=== PATIENT | female | born 1950 | race Caucasian/White ===

== ENCOUNTER 2023-03-13 09:04 | Day surgery (SDC) | payer MEDICARE ==
[~2023-03-13] VITALS: Ht 162.6 cm; Wt 73.0 kg
[2023-03-13] VITALS (17 sets, daily range): BP systolic 115–136; BP diastolic 56–80; PULSE 69–81; RESP 9–17; TEMP 97.9; O2SAT 90–100
[2023-03-13] MEDS ORDERED: ringers solution, lacted 1,000 ML IV SCH ×2 (09:37→10:45)
[2023-03-13] MEDS ORDERED: famotidine 20mg tablet PO ONE (09:37)
[2023-03-13] MEDS ORDERED: cefazolin 2gm/D5W 100mL 100 ML IV ONE (09:37)
[2023-03-13] MEDS ORDERED: CITA10TA PO (09:50)
[2023-03-13] MEDS ORDERED: CALC1CAP22 PO (09:50)
[2023-03-13] MEDS ORDERED: PRAV40TA3 PO (09:50)
[2023-03-13] MEDS ORDERED: HYDR-3972 PO (09:50)
[2023-03-13] MEDS ORDERED: LISI40TA13 PO (09:50)
[2023-03-13] MEDS ORDERED: CHOL400T58 PO (09:50)
[2023-03-13] MEDS ORDERED: OMEG-5 PO (09:50)
[2023-03-13] MEDS ORDERED: HYDR25TA5 PO (09:50)
[2023-03-13] MEDS ORDERED: morphine 4 MG/ML inj SYRINge IV ONE (10:30)
[2023-03-13] MEDS ORDERED: HYDROcodone/acetaminophen 10/325mg tab PO ONE (10:30)
[2023-03-13] MEDS ORDERED: morphine 2 MG/ML inj. syringe IV PRN (10:45)
[2023-03-13] MEDS ORDERED: hydrALAZINE 20mg/ml inj. IV PRN (10:45)
[2023-03-13] MEDS ORDERED: labetalol 20mg/4ml (5mg/ml) syringe IV PRN (10:45)
[2023-03-13] MEDS ORDERED: ondansetron/PF 4mg/2ml inj IV PRN (10:45)
[2023-03-13] MEDS ORDERED: fentaNYL/PF 50MCG/1 ML 2ML syringe IV PRN ×2 (10:45)
[2023-03-13] MEDS ORDERED: morphine 4 MG/ML inj SYRINge IV PRN (10:45)
[2023-03-13 11:22] LABS: BASOPHILS % (AUTO) 0.5 % (0-1); EOSINOPHILS % (AUTO) 0.9 % (0-6); LYMPHOCYTES # (AUTO) 1.6 X10'3 (1.1-4.8); LYMPHOCYTES % (AUTO) 29.7 % (21-51); MEAN CORPUSCULAR HEMOGLOBIN 32.8 PG (27.0-31.0); MEAN CORPUSCULAR HGB CONC 34.2 g/dL (33.0-36.5); MEAN CORPUSCULAR VOLUME 95.8 FL (78-98); MEAN PLATELET VOLUME 7.4 FL (7.4-10.4); MONOCYTES # (AUTO) 0.6 X10'3 (0-0.9); MONOCYTES % (AUTO) 11.2 % (2-12); NEUTROPHILS % (AUTO) 57.7 % (42-75); PRE OP HEMATOCRIT 37.3 % (35.0-45.0); PRE OP HEMOGLOBIN 12.8 g/dL (12.0-16.0); PRE OP PLATELET COUNT 186 X10'3 (140-440); RED BLOOD COUNT 3.89 X10'6 (4.20-5.60)
[2023-03-13 11:37] LABS: ALBUMIN 3.7 G/DL (3.4-5.0); ALBUMIN/GLOBULIN RATIO 1.2 (1.1-1.5); ALKALINE PHOSPHATASE 67 IU/L (46-116); BLOOD UREA NITROGEN 21 MG/DL (7-18); BUN/CREATININE RATIO 30.4 (10.0-20.0); CALCIUM 9.1 MG/DL (8.5-10.1); CHLORIDE 99 MMOL/L (99-107); CREATININE 0.69 MG/DL (0.40-0.90); PRE OP ALT 25 U/L (30-65); PRE OP ANION GAP 7 (8-16); PRE OP AST 22 U/L (10-37); PRE OP BILIRUB, TOTAL 0.5 MG/DL (0.0-1.0); PRE OP GLUCOSE 99 MG/DL (70-104); PRE OP POTASSIUM 3.6 MMOL/L (3.4-5.1); PRE OP SODIUM 135 MMOL/L (135-145); TOTAL CARBON DIOXIDE 29.4 MMOL/L (24-32); TOTAL PROTEIN 6.8 G/DL (6.4-8.2); eGFR 84 ML/MIN
[2023-03-13] MEDS ORDERED: LIDOcaine 1% (10mg/ml) 2ml vial ONE (12:13)
[2023-03-13] MEDS ORDERED: triamcinolone acetonide 40mg/ml inj ONE (12:13)
[2023-03-13] MEDS ORDERED: LIDOcaine 2% (20mg/ml) 5ml vial ONE (12:17)
[2023-03-13] MEDS ORDERED: propofol inj 20 ML IV ONE (12:17)
[2023-03-13] MEDS ORDERED: ROPIVAcaine 0.5% (5mg/ml) 30ml vial ONE ×2 (12:18)
[2023-03-13] MEDS ORDERED: dexamethasone sod phosphate 10mg/ml inj ONE (12:21)
[2023-03-13] MEDS ORDERED: ePHEDrine 50MG/ML INJ. ONE (12:21)
[2023-03-13] MEDS ORDERED: desflurane 240ml liquid inh. IH ONE (12:21)
[2023-03-13] MEDS ORDERED: triamcinolone acetonide 40mg/ml inj IM ONE (12:30)
[2023-03-13] MEDS ORDERED: LIDOcaine 1% (10mg/ml) 2ml vial IM ONE (12:30)
[2023-03-13] MEDS ORDERED: fentaNYL/PF 50MCG/1 ML 2ML syringe ONE (12:30)
[2023-03-13] MEDS ORDERED: midazolam 1 mg/ML 2ml injection ONE (12:30)
[2023-03-13] MEDS ORDERED: ondansetron/PF 4mg/2ml inj ONE (12:51)
[2023-03-13] MEDS ORDERED: acetaminophen 1,000mg/100ml IV 100 ML IV ONE (13:52)
--- NOTE | 2023-03-13 14:15 | NUR ---
[facility] accompanied by Anesthesiologist HAILE and report given by Anesthesiolgist. PT SLEEPY, OXYGENATING WELL ON 10 LPM O2 VIA MASK, NO RESP DISTRESS NOTED. DENIES NAUSEA AND PAIN AT THIS TIME, HAD LEFT AXILLARY BRACHIAL PLEXUS BLOCK. LEFT FINGERS PWD. SPLINT WITH NIDHI BANDAGE TO L WRIST. BANDAID TO R PALM AT BASE OF FINGERS, COVERING INJECTION SITE. VSS.
--- NOTE | 2023-03-13 16:17 | NUR ---
DC HOME: ALL DISCHARGE CRITERIA HAS BEEN MET. VSS, PAIN AT TOLERABLE LEVEL. ABLE TO SAFELY AMBULATE AND TRANSFER SELF. IV TAKEN OUT WITHOUT ANY COMPLICATIONS. SLING PLACED ON PT LEFT ARM WITH REGIONAL NERVE BLOCK STICKER. PT ADVISED TO USE ICE PACK AND ELEVATE. ALL DISCHARGE INSTRUCTIONS COVERED WITH PATIENT AND ALL QUESTIONS ANSWERED. PATIENT TAKEN OUT VIA WHEELCHAIR TO PERSONAL VEHICLE WHERE FAMILY/FRIEND DROVE PATIENT HOME. Addendum: 03/13/23 at 1642 by Lolis Reaves - ISA MOSS Amended: Links added.
== END 2023-03-13 16:17 | disposition home or self-care (01) ==
LOC: PAS 09:04
PROVIDERS: ATTEND Orthopaedic Surgery Hand Surgery
DX: S52.572A Other intraarticular fracture of lower end of left radius, initial encounter for closed fracture (principal); S52.612A Displaced fracture of left ulna styloid process, initial encounter for closed fracture; M65.342 Trigger finger, left ring finger; M65.341 Trigger finger, right ring finger; M65.331 Trigger finger, right middle finger; I10 Essential (primary) hypertension; K21.9 Gastro-esophageal reflux disease without esophagitis; G47.00 Insomnia, unspecified; F32.A Depression, unspecified; E83.119 Hemochromatosis, unspecified; G89.18 Other acute postprocedural pain; Z91.09 Other allergy status, other than to drugs and biological substances; Z79.899 Other long term (current) drug therapy; Z90.710 Acquired absence of both cervix and uterus; Z98.890 Other specified postprocedural states; Z72.89 Other problems related to lifestyle; V58.2XXA Person on outside of pick-up truck or van injured in noncollision transport accident in nontraffic accident, initial encounter; Y93.89 Activity, other specified; Y92.009 Unspecified place in unspecified non-institutional (private) residence as the place of occurrence of the external cause; Y99.8 Other external cause status
CPT/HCPCS: 20600; 25609; 25652; 36415; 64417; 80053; 85025; 93005; A6222; C1713; J0131; J0690; J1100; J2250; J2270; J2405; J2704; J2795; J3010; J3301; J3490; J7030; J7120; Z7506; Z7508; Z7512; A4215; A4565; A4618; A6449; A7000

== ENCOUNTER 2023-03-14 12:30 | Emergency (ER) | payer MEDICARE ==
[~2023-03-14] VITALS: Ht 162.6 cm; Wt 72.7 kg
[~2023-03-14 12:30] MED LIST: CALC1CAP22 PO; CHOL400T58 PO; CITA10TA PO; HYDR-3972 PO; HYDR25TA5 PO; LISI40TA13 PO; OMEG-5 PO; PRAV40TA3 PO
[2023-03-14 12:58] VITALS: BP 125/61; PULSE 77; TEMP 99; O2SAT 95
[2023-03-14] MEDS ORDERED: morphine 4 MG/ML inj SYRINge IV ONE (13:45)
[2023-03-14] MEDS ORDERED: ondansetron/PF 4mg/2ml inj IV ONE (13:45)
[2023-03-14] MEDS ORDERED: HYDROcodone/acetaminophen 10/325mg tab PO ONE (14:50)
[2023-03-14 15:15] VITALS: RESP 18
== END 2023-03-14 15:32 | disposition home or self-care (01) ==
LOC: ER 12:30
DX: M79.602 Pain in left arm (principal); Z79.899 Other long term (current) drug therapy
CPT/HCPCS: 96374; 96375; 99284; J2270; J2405